=== PATIENT | male | born 1980 | race Caucasian/White ===

== ENCOUNTER 2017-03-24 11:01 | Emergency (ER) | payer MEDICAID ==
[~2017-03-24] VITALS: Ht 177.8 cm; Wt 76.6 kg
[2017-03-24 11:02] VITALS: BP 131/93
[2017-03-24] MEDS ORDERED: DEXAMETHASONE 4 MG TABLET PO ONE (12:00)
== END 2017-03-24 12:13 | disposition home or self-care (01) ==
LOC: ED 12:04
DX: J02.0 Streptococcal pharyngitis (principal); B95.62 Methicillin resistant Staphylococcus aureus infection as the cause of diseases classified elsewhere; L03.115 Cellulitis of right lower limb; L03.116 Cellulitis of left lower limb; I10 Essential (primary) hypertension
CPT/HCPCS: 99283

== ENCOUNTER 2017-05-26 12:26 | Emergency (ER) | payer MEDICAID ==
[~2017-05-26] VITALS: Ht 177.8 cm; Wt 81.0 kg
[2017-05-26 12:33] VITALS: BP 126/82
== END 2017-05-26 14:13 | disposition home or self-care (01) ==
LOC: ED 14:07
DX: J00 Acute nasopharyngitis [common cold] (principal); J01.00 Acute maxillary sinusitis, unspecified; F17.210 Nicotine dependence, cigarettes, uncomplicated; I10 Essential (primary) hypertension
CPT/HCPCS: 99283

== ENCOUNTER 2017-08-29 08:11 | Emergency (ER) | payer MEDICAID ==
[~2017-08-29] VITALS: Ht 177.8 cm; Wt 82.4 kg
[2017-08-29 08:12] VITALS: BP 151/99
[2017-08-29] MEDS ORDERED: DIPH,PERTUSS(ACELL),TET VAC/PF 0.5 ML IM-VACC ONE ×2 (09:00→09:27)
[2017-08-29] MEDS ORDERED: OXYcodone/APAP 5/325MG TABLET PO ONE (10:00)
[2017-08-29] MEDS ORDERED: OXYcodone/APAP 5/325MG TABLET ONE (10:08)
== END 2017-08-29 10:30 ==
LOC: ED 10:00
DX: S62.353A Nondisplaced fracture of shaft of third metacarpal bone, left hand, initial encounter for closed fracture (principal); S62.355A Nondisplaced fracture of shaft of fourth metacarpal bone, left hand, initial encounter for closed fracture; S61.511A Laceration without foreign body of right wrist, initial encounter; W18.39XA Other fall on same level, initial encounter; Y93.89 Activity, other specified; Y92.488 Other paved roadways as the place of occurrence of the external cause; Y99.8 Other external cause status
CPT/HCPCS: 29125; 90715; 96372

== ENCOUNTER 2018-10-13 11:16 | Emergency (ER) | payer MEDICAID ==
[~2018-10-13] VITALS: Ht 177.8 cm; Wt 77.8 kg
[2018-10-13] MEDS ORDERED: HYDROcodone/APAP 7.5-325MG/15ML UDC PO PRN (11:30)
[2018-10-13] MEDS ORDERED: DEXAMETHASONE 4 MG TABLET PO ONE (11:30)
[2018-10-13] MEDS ORDERED: DEXAMETHASONE 4 MG TABLET ONE (11:35)
[2018-10-13] MEDS ORDERED: HYDROcodone/APAP 7.5-325MG/15ML UDC ONE (11:35)
--- NOTE | 2018-10-13 11:44 | NUR ---
MEDICATED ORDERED FOR 10 THROAT PAIN
[2018-10-13 12:23] VITALS: BP 128/72
== END 2018-10-13 12:25 | disposition home or self-care (01) ==
LOC: ED 12:10
DX: J03.90 Acute tonsillitis, unspecified (principal); I10 Essential (primary) hypertension; F17.200 Nicotine dependence, unspecified, uncomplicated
CPT/HCPCS: 87880; 99283

== ENCOUNTER 2019-01-22 20:48 | Emergency (ER) | payer MEDICAID ==
[2019-01-22 20:49] VITALS: BP 135/91
== END 2019-01-22 22:53 | disposition home or self-care (01) ==
LOC: ED 21:20
DX: S01.311A Laceration without foreign body of right ear, initial encounter (principal); S01.81XA Laceration without foreign body of other part of head, initial encounter; W45.8XXA Other foreign body or object entering through skin, initial encounter; Y93.55 Activity, bike riding; Y92.410 Unspecified street and highway as the place of occurrence of the external cause; Y99.8 Other external cause status
CPT/HCPCS: 12052; 99284

== ENCOUNTER 2019-08-03 03:12 | Emergency (ER) | payer MEDICAID ==
[2019-08-03 03:20] VITALS: BP 137/88
[2019-08-03] MEDS ORDERED: ONDANSETRON 2MG/ML, 2ML IVPush ONE (03:30)
[2019-08-03] MEDS ORDERED: MORPHINE SULFATE 4 MG/ML, 1ML IVPush PRN (03:30)
[2019-08-03] MEDS ORDERED: ONDANSETRON 2MG/ML, 2ML ONE (03:41)
[2019-08-03] MEDS ORDERED: MORPHINE SULFATE 4 MG/ML, 1ML ONE (03:41)
[2019-08-03 03:44] LABS: BASOPHILS % (AUTO) 0 % (0-1); EOSINOPHILS # (AUTO) 0.01 x10^3/uL (0-0.4); EOSINOPHILS % (AUTO) 0 % (1-7); LYMPHOCYTES # (AUTO) 0.42 x10^3/uL (1-3.4); LYMPHOCYTES % (AUTO) 4 % (22-44); MD NO; MEAN CORPUSCULAR HEMOGLOBIN 31.8 pg (27.5-34.5); MEAN CORPUSCULAR HGB CONC 34.7 g/dL (33.2-36.2); MEAN CORPUSCULAR VOLUME 91.6 fL (81-97); MEAN PLATELET VOLUME 6.8 fL (7.4-10.4); MONOCYTES # (AUTO) 0.44 x10^3/uL (0.2-0.8); MONOCYTES % (AUTO) 4 % (2-9); NEUTROPHILS # (AUTO) 9.36 x10^3/uL (1.8-6.8); NEUTROPHILS % (AUTO) 92 % (42-75); PLATELET COUNT 238 x10^3/uL (130-400); RED BLOOD COUNT 5.09 x10^6/uL (4.38-5.82); RED CELL DISTRIBUTION WIDTH 12.8 % (9.4-14.8)
[2019-08-03] MEDS ORDERED: PLEASE ENTER HEIGHT AND WEIGHT MC SCH (04:00)
[2019-08-03 04:12] LABS: ALANINE AMINOTRANSFERASE 22 U/L (12-78); ALBUMIN 3.6 g/dL (3.4-5.0); ANION GAP 7 mmol/L (5-15); CALCIUM 8.4 mg/dL (8.5-10.1); CHLORIDE 107 mmol/L (98-107); CREATININE 0.72 mg/dL (0.7-1.3)
[2019-08-03 04:16] LABS: ALKALINE PHOSPHATASE 65 U/L (45-117); BILIRUBIN,TOTAL 0.9 mg/dL (0.2-1.0); TOTAL PROTEIN 7.6 g/dL (6.4-8.2); TROPONIN I < 0.015 ng/mL (0.000-0.045)
== END 2019-08-03 05:26 | disposition home or self-care (01) ==
LOC: ED 05:00
DX: K29.00 Acute gastritis without bleeding (principal); F15.10 Other stimulant abuse, uncomplicated; R00.0 Tachycardia, unspecified; I10 Essential (primary) hypertension; F17.200 Nicotine dependence, unspecified, uncomplicated
CPT/HCPCS: 36415; 80053; 80307; 83690; 84484; 85025; 93005; 96374; 96375; 99284; J2270; J2405

== ENCOUNTER 2020-03-24 02:28 | Emergency (ER) | payer MEDICAID ==
[~2020-03-24] VITALS: Ht 177.8 cm; Wt 77.0 kg
[2020-03-24 02:31] VITALS: BP 129/90
[2020-03-24] MEDS ORDERED: NEOSPORIN OINT. PKT 1 PACKET ONE (04:11)
== END 2020-03-24 04:39 | disposition home or self-care (01) ==
LOC: ED 02:58
DX: S09.90XA Unspecified injury of head, initial encounter (principal); S00.511A Abrasion of lip, initial encounter; I10 Essential (primary) hypertension; F17.200 Nicotine dependence, unspecified, uncomplicated; W01.0XXA Fall on same level from slipping, tripping and stumbling without subsequent striking against object, initial encounter; Y93.89 Activity, other specified; Y92.488 Other paved roadways as the place of occurrence of the external cause; Y99.8 Other external cause status
CPT/HCPCS: 70450; 70486; 99285